=== PATIENT | female | born 1980 | race Caucasian/White ===

== ENCOUNTER 2020-07-27 03:59 | Emergency (ER) | payer BC ==
[~2020-07-27] VITALS: Ht 170.2 cm; Wt 122.5 kg
[~2020-07-27 03:59] MED LIST: CODGUAEL PO; CYCL10 PO; HYDACE5 PO; LEVSOD50 PO; NAPR500 PO; OXYACE5T PO; RXCODGUASY PO; RXCYCL10 PO; RXHYDACE PO
[2020-07-27] MEDS ORDERED: EUTHYROX125 MCG PO (04:45)
[2020-07-27] MEDS ORDERED: SERT50 PO (04:45)
[2020-07-27] MEDS ORDERED: CEPH500 PO (04:46)
[2020-07-27] MEDS ORDERED: CIPRODEX OTIC7.5 M1 RIGHTEAR (05:22)
== END 2020-07-27 05:30 | disposition home or self-care (01) ==
LOC: ER 03:59
DX: H60.91 Unspecified otitis externa, right ear (principal); E03.9 Hypothyroidism, unspecified; Z79.899 Other long term (current) drug therapy
CPT/HCPCS: 99282; A9270

== ENCOUNTER 2021-03-14 19:31 | Emergency (ER) | payer BC ==
[~2021-03-14] VITALS: Ht 170.2 cm; Wt 127.0 kg
[~2021-03-14 19:31] MED LIST changes: +CEPH500 PO; +CIPRODEX OTIC7.5 M1 RIGHTEAR; +EUTHYROX125 MCG PO; +SERT50 PO
[2021-03-14] MEDS ORDERED: DEXA2 PO (20:43)
[2021-03-14] MEDS ORDERED: ONDA4ODT MM (20:43)
== END 2021-03-14 20:51 | disposition home or self-care (01) ==
LOC: ER 19:31
DX: U07.1 COVID-19 (principal); Z79.899 Other long term (current) drug therapy
CPT/HCPCS: 99283

== ENCOUNTER → 2021-03-24 | Outpatient (CLI) | payer BC ==
[~2021-03-24] MED LIST changes: +DEXA2 PO; +ONDA4ODT MM
[2021-03-24 19:50] LABS: BASOPHILS ABSOLUTE AUTO 0.07 K/mm3 (0.00-0.23); BASOPHILS PERCENT AUTO 0 % (0-2); EOSINOPHILS ABSOLUTE AUTO 0.07 K/mm3 (0.00-0.68); EOSINOPHILS PERCENT AUTO 0 % (0-6); Hemoglobin 12.4 g/dL (11.5-16.0); IMMATURE GRAN ABSOLUTE AUTO 0.83 K/mm3 (0.00-0.10); IMMATURE GRAN PERCENT AUTO 4 % (0-1); LYMPHOCYTES ABSOLUTE AUTO 2.13 K/mm3 (0.84-5.20); LYMPHOCYTES PERCENT AUTO 10 % (21-46); MONOCYTES PERCENT AUTO 4 % (4-13); Mean Corpuscular HGB 24.8 pg (26.0-34.0); Mean Corpuscular Volume 80 fL (80-100); Mean Platelet Volume 11.2 fL (9.1-12.4); NEUTROPHILS ABSOLUTE AUTO 17.16 K/mm3 (1.96-9.15); NEUTROPHILS PERCENT AUTO 82 % (41-73); Platelet Count 401 K/mm3 (150-400); RDW Coefficient Variation 16.6 % (11.7-14.2); RDW Standard Deviation 46.5 fL (35.1-46.3); Red Blood Cell Count 4.99 M/mm3 (3.80-5.20); White Blood Cell Count 21.06 K/mm3 (4.00-11.30)
== END | disposition home or self-care (01) ==
LOC: LAB 11:40 → LAB SHORT 11:40
PROVIDERS: Family Medicine
DX: D64.9 Anemia, unspecified (principal)
CPT/HCPCS: 85025

== ENCOUNTER → 2024-01-28 | Outpatient (CLI) | payer BC ==
[~2024-01-28] MED LIST changes: +ACYC800 PO; +ALBU90OI; +ATOR10 PO; +BETA.05TCA; +CEFD300 PO; +ESTRADIOL1 MG PO; +IBUP600 PO; +LEVOTHYROXINE175 MC9 PO; +METF500 PO; +Naproxen375 MG PO; +OMEP20ER; +Roxicodone5 MG PO; +SERT100 PO; +TEMOVATE15 G1 TOP
[2024-01-28 19:16] LABS: Adenovirus F 40/41 Not Detected (NOT DETECT); Astrovirus Not Detected (NOT DETECT); Campylobacter Sp Not Detected (NOT DETECT); Cryptosporidium Not Detected (NOT DETECT); Cyclospora Cayetanensis Not Detected (NOT DETECT); E. Coli O157 Not Detected (NOT DETECT); Entamoeba Histolytica Not Detected (NOT DETECT); Enteroaggregative E. coli-EAEC Not Detected (NOT DETECT); Enteropathogenic E. coli-EPEC Not Detected (NOT DETECT); Enterotoxigenic E. coli-ETEC Not Detected (NOT DETECT); Giardia Lamblia Not Detected (NOT DETECT); Norovirus GI/GII Not Detected (NOT DETECT); Plesiomonas Shigelloides Not Detected (NOT DETECT); Rotavirus A Not Detected (NOT DETECT); Salmonella Sp Not Detected (NOT DETECT); Sapovirus Not Detected (NOT DETECT); Shiga Toxin-prod E. coli-STEC Not Detected (NOT DETECT); Shigella/Enteroin E. coli-EIEC Not Detected (NOT DETECT); Vibrio Cholerae Not Detected (NOT DETECT); Vibrio Sp Not Detected (NOT DETECT); Yersinia Enterocolitica Not Detected (NOT DETECT)
[2024-01-31 03:25] LABS: CALPROTECTIN,FECAL 57 ug/g (<=49)
== END | disposition home or self-care (01) ==
LOC: LAB SHORT 15:20 → LAB 15:20
PROVIDERS: Physician Assistant Medical
DX: R19.7 Diarrhea, unspecified (principal)
CPT/HCPCS: 83993; 87507

== ENCOUNTER 2024-06-18 08:09 | Day surgery (SDC) | payer BC ==
[2024-06-18] VITALS (12 sets, daily range): BP systolic 96–115; BP diastolic 45–73
[~2024-06-18] VITALS: Ht 167.6 cm; Wt 117.9 kg
[~2024-06-18 08:09] MED LIST changes: +OZEMPIC0.25 MG/02 SQ
[2024-06-18] MEDS ORDERED: Lactated Ringer's 1,000 ML IV SCH (10:00)
[2024-06-18] MEDS ORDERED: CeFAZolin Sodium 2,000 MG in NS 100 ML IV SCH (10:00)
[2024-06-18] MEDS ORDERED: FentaNYL Citrate 50 MCG/ML 5 ML Injection ONE (11:31)
[2024-06-18] MEDS ORDERED: propofoL 20 ML IV ONE (11:31)
[2024-06-18] MEDS ORDERED: Ondansetron HCl 2 MG / ML 2ML Vial ONE (11:31)
[2024-06-18] MEDS ORDERED: Rocuronium Bromide 10 MG/ML 5ML Injection IV ONE ×2 (11:31→12:50)
[2024-06-18] MEDS ORDERED: Dexamethasone Sod Phos 10 MG/ML 1ML VIAL ONE (11:31)
[2024-06-18] MEDS ORDERED: Methylene Blue 1% 100 MG/10 ML VIAL ONE (11:31)
[2024-06-18] MEDS ORDERED: Lidocaine HCl 2% 20 ML MDV ONE (11:31)
[2024-06-18] MEDS ORDERED: Bupivacaine 0.5% HCl 5 MG/ML 30MLVIAL ONE (11:32)
[2024-06-18] MEDS ORDERED: HYDROmorphone HCl/Pf 1MG SYR IV PRN (11:40)
[2024-06-18] MEDS ORDERED: FentaNYL Citrate 50 MCG/ML 2 ML Injection IV PRN ×3 (11:40)
[2024-06-18] MEDS ORDERED: Ondansetron HCl 2 MG / ML 2ML Vial IV PRN (11:40)
[2024-06-18] MEDS ORDERED: Labetalol HCL 5 MG/ML 4ML Injection (Single Dose) IV PRN (11:40)
[2024-06-18] MEDS ORDERED: Metoclopramide HCl 5MG / ML 2ML Vial IV PRN (11:40)
[2024-06-18] MEDS ORDERED: Glycopyrrolate 0.2 MG/ML 5ML VIAL ONE (13:17)
[2024-06-18] MEDS ORDERED: Neostigmine Methylsulfate 5MG/5ML SYR ONE (13:17)
[2024-06-18] MEDS ORDERED: FentaNYL Citrate 50 MCG/ML 2 ML Injection ONE (13:54)
[2024-06-18] MEDS ORDERED: Metoclopramide HCl 5MG / ML 2ML Vial ONE (13:56)
[2024-06-18] MEDS ORDERED: Ketorolac Tromethamine 30mg Vial ONE (13:56)
[2024-06-18] MEDS ORDERED: HYDROcodone 5-APAP 325 TAB PO PRN (14:45)
--- NOTE | 2024-06-18 14:54 | NUR ---
Patient up to Ambulate independently. Gait steady. Dressing to procedure site clean, dry, intact with no visible drainage, swelling, erythema or bruising noted. Patient States Post-Procedure ride home has been arranged. Discharged via wheelchair to private car for ride home.
[2024-06-25] MEDS ORDERED: CLOBETASOL EMOL15 G1 TOP (09:42)
== END 2024-06-18 14:59 | disposition home or self-care (01) ==
LOC: ORSCMMR 08:09 → NM 08:09 → ORSCMMR 08:10 → NM 09:30
DX: C50.811 Malignant neoplasm of overlapping sites of right female breast (principal); D36.0 Benign neoplasm of lymph nodes; Z17.0 Estrogen receptor positive status [ER+]; Z17.21 Progesterone receptor positive status; Z17.32 Human epidermal growth factor receptor 2 negative status; G47.33 Obstructive sleep apnea (adult) (pediatric); E11.9 Type 2 diabetes mellitus without complications; E03.9 Hypothyroidism, unspecified; E66.01 Morbid (severe) obesity due to excess calories; Z68.41 Body mass index [BMI] 40.0-44.9, adult; Z79.84 Long term (current) use of oral hypoglycemic drugs; Z79.899 Other long term (current) drug therapy; Z79.85 Long-term (current) use of injectable non-insulin antidiabetic drugs
CPT/HCPCS: 38792; 76098; 82947; 88307; 88342; A9520; J0690; J1100; J1885; J2405; J2704; J2710; J2765; J3010; J7120; Q9968

== ENCOUNTER 2024-07-03 10:01 | Day surgery (SDC) | payer BC ==
[~2024-07-03] VITALS: Ht 167.6 cm; Wt 119.7 kg
[2024-07-03] VITALS (9 sets, daily range): BP systolic 101–120; BP diastolic 64–75
[~2024-07-03 10:01] MED LIST changes: +CLOBETASOL EMOL15 G1 TOP; +Lactated Ringer's 1,000 ML IV SCH
--- NOTE | 2024-07-03 10:51 | NUR ---
Ambulatory in Day Surgery History, Chart, Medications and Allergies reviewed before start of procedure. Pre-Op teaching done. Pt verbalizes understanding. Patient States Post-Procedure ride home has been arranged.
[2024-07-03] MEDS ORDERED: CeFAZolin Sodium 2,000 MG in NS 100 ML IV SCH (11:00)
[2024-07-03] MEDS ORDERED: CeFAZolin Sodium 2,000 MG VIAL ONE (11:10)
[2024-07-03] MEDS ORDERED: Bupivacaine 0.5% HCl 5 MG/ML 30MLVIAL ONE (11:24)
[2024-07-03] MEDS ORDERED: propofoL 20 ML IV ONE ×2 (11:26→11:37)
[2024-07-03] MEDS ORDERED: FentaNYL Citrate 50 MCG/ML 2 ML Injection ONE (11:26)
[2024-07-03] MEDS ORDERED: Dexamethasone Sod Phos 10 MG/ML 1ML VIAL ONE (11:44)
[2024-07-03] MEDS ORDERED: Ondansetron HCl 2 MG / ML 2ML Vial ONE (12:09)
[2024-07-03] MEDS ORDERED: HYDROcodone 5-APAP 325 TAB PO PRN (12:30)
[2024-07-03] MEDS ORDERED: Ketorolac Tromethamine 30mg Vial ONE (12:30)
--- NOTE | 2024-07-03 13:00 | NUR ---
INTO SDS. PT A&OX4-DENIES PAIN, NAUSEA, OR SOB. VS WDL. BREAST BINDER IN PLACE-STERI STRIP TO RIGHT BREAST C/D/I. PT TOLERATING PO WELL.
--- NOTE | 2024-07-03 13:20 | NUR ---
Patient up to Ambulate independently. Gait steady. Dressing to procedure site clean, dry, intact with no visible drainage, swelling, erythema or bruising noted.Breast binder in place. Discharge instructions reviewed with patient. Patient verbalizes understanding. Copy given to patient to take home.Pt discharged to home, out via wheelchair with discharge instructions, rx and belongings on hand.
== END 2024-07-03 23:00 | disposition home or self-care (01) ==
LOC: ORSCMMR 10:01 → ORD 11:45 → ORSCMMR 23:00
PROVIDERS: Surgery
PROC: 0HBT0ZZ Excision of Right Breast, Open Approach (ICD-10-PCS; principal; 2024-07-03 11:45)
DX: C50.411 Malignant neoplasm of upper-outer quadrant of right female breast (principal); G47.33 Obstructive sleep apnea (adult) (pediatric); Z79.899 Other long term (current) drug therapy; Z79.84 Long term (current) use of oral hypoglycemic drugs; Z79.85 Long-term (current) use of injectable non-insulin antidiabetic drugs; E66.01 Morbid (severe) obesity due to excess calories; Z68.41 Body mass index [BMI] 40.0-44.9, adult; E11.9 Type 2 diabetes mellitus without complications; E78.5 Hyperlipidemia, unspecified; E03.9 Hypothyroidism, unspecified; K21.9 Gastro-esophageal reflux disease without esophagitis; E28.2 Polycystic ovarian syndrome
CPT/HCPCS: 76098; 82947; 88307; J0690; J1100; J1885; J2405; J2704; J3010; J7120

== ENCOUNTER 2024-07-07 06:09 | Day surgery (SDC) | payer BC ==
[~2024-07-07] VITALS: Ht 167.6 cm; Wt 119.7 kg
[2024-07-07] VITALS (12 sets, daily range): BP systolic 107–141; BP diastolic 60–89
[~2024-07-07 06:09] MED LIST changes: -Lactated Ringer's 1,000 ML IV SCH
[2024-07-07] MEDS ORDERED: CeFAZolin Sodium 3,000 MG in NS 100 ML IV SCH (06:25)
[2024-07-07] MEDS ORDERED: Phenazopyridine HCl 100 MG Tab PO SCH (06:25)
[2024-07-07] MEDS ORDERED: Lactated Ringer's 1,000 ML IV SCH ×2 (06:25→10:20)
[2024-07-07] MEDS ORDERED: CeFAZolin Sodium 1000 mg Vial ONE (06:47)
--- NOTE | 2024-07-07 07:01 | NUR ---
PINK TOP DRAWN AND SENT TO LAB FOR TYPE AND SCREEN
--- NOTE | 2024-07-07 07:01 | NUR ---
History, Chart, Medications and Allergies reviewed before start of procedure. Pre-Op teaching done. Pt verbalizes understanding. Patient confirms NPO status and agrees with scheduled surgery. PT BELONGINGS BAG PLACED UNDER GURNEY. PT SPOUSE AT BS.
[2024-07-07] MEDS ORDERED: Bupivacaine 0.5% HCl 5 MG/ML 30MLVIAL ONE (07:03)
[2024-07-07] MEDS ORDERED: Midazolam HCl 1MG / ML 2ML Vial IV SCH (07:30)
[2024-07-07] MEDS ORDERED: FentaNYL Citrate 50 MCG/ML 2 ML Injection ONE ×2 (07:32→08:10)
[2024-07-07] MEDS ORDERED: propofoL 20 ML IV ONE (07:32)
[2024-07-07] MEDS ORDERED: Rocuronium Bromide 10 MG/ML 5ML Injection IV ONE (07:48)
[2024-07-07] MEDS ORDERED: Dexamethasone Sod Phos 10 MG/ML 1ML VIAL ONE (07:48)
[2024-07-07] MEDS ORDERED: Ondansetron HCl 2 MG / ML 2ML Vial ONE (07:48)
[2024-07-07] MEDS ORDERED: Ketorolac Tromethamine 30mg Vial ONE (09:38)
[2024-07-07] MEDS ORDERED: Sugammadex Sodium 200 MG/2ML SDV (100 MG/ML) ONE (09:51)
[2024-07-07] MEDS ORDERED: HYDROmorphone HCl/Pf 1MG SYR ONE ×2 (09:55→09:59)
[2024-07-07] MEDS ORDERED: Naloxone HCl 0.4MG / ML 1ML Vial IV PRN (10:20)
[2024-07-07] MEDS ORDERED: Metoclopramide HCl 10 MG Tab PO PRN (10:20)
[2024-07-07] MEDS ORDERED: Ibuprofen 400 MG Tab PO PRN (10:25)
[2024-07-07] MEDS ORDERED: Ondansetron HCl 2 MG / ML 2ML Vial IV PRN (10:25)
[2024-07-07] MEDS ORDERED: FLU VACC TS2024-25(6MOS UP)/PF 45 MCG/0.5 ML SYRINGE IM SCH (10:25)
[2024-07-07] MEDS ORDERED: HYDROmorphone HCl/Pf 1MG SYR IV PRN (10:25)
[2024-07-07] MEDS ORDERED: DiphenhydrAMINE HCL 25 MG Cap PO PRN (10:25)
[2024-07-07] MEDS ORDERED: OxyCODONE HCL 5 MG TAB PO PRN ×2 (10:30)
[2024-07-07] MEDS ORDERED: Cyclobenzaprine HCl 10 MG Tab PO PRN (10:30)
[2024-07-07] MEDS ORDERED: Simethicone 80 MG Chew PO PRN (10:30)
[2024-07-07] MEDS ORDERED: Ketorolac Tromethamine 30mg Vial IV SCH (12:00)
[2024-07-07] MEDS ORDERED: Acetaminophen 500 MG Tab PO SCH (12:00)
[2024-07-07] MEDS ORDERED: IBUP800 PO (14:58)
[2024-07-07] MEDS ORDERED: ACET500 PO (14:59)
[2024-07-07] MEDS ORDERED: ELIQUIS2.5 MG PO (15:01)
[2024-07-07] MEDS ORDERED: OXYC5 PO (15:02)
--- NOTE | 2024-07-07 16:50 | NUR ---
DISCHARGE VOIDING, TOLERATING FLUIDS & SNACKS, PAIN WELL CONTROLLED. NO VAGINAL BLEEDING. FEELS COMFORTABLE w/ DC. ESCORTED OUT VIA WC.
[2024-07-07] MEDS ORDERED: MetFORMIN HCl 500 mg PO SCH (17:00)
[2024-07-08] MEDS ORDERED: Levothyroxine Sodium 0.175 MG TAB PO SCH (06:00)
[2024-07-08] MEDS ORDERED: Enoxaparin 40 MG/0.4 ML SYR SC SCH (09:00)
[2024-07-08] MEDS ORDERED: Atorvastatin 10 MG Tab PO SCH (09:00)
[2024-07-08] MEDS ORDERED: Sertraline HCl 100 MG Tab PO SCH (09:00)
[2024-07-08] MEDS ORDERED: Omeprazole 20 MG CapCR PO SCH (09:00)
== END 2024-07-07 16:35 | disposition home or self-care (01) ==
LOC: ORSCMMR 06:09 → ORD 07:30 → ORSCMMR 07:30 → SURS 10:43 → ORSCMMR 16:35
PROVIDERS: Obstetrics & Gynecology
PROC: 0UT2FZZ Resection of Bilateral Ovaries, Via Natural or Artificial Opening With Percutaneous Endoscopic Assistance (ICD-10-PCS; principal; 2024-07-07 07:30)
PROC: 0UT9FZZ Resection of Uterus, Via Natural or Artificial Opening With Percutaneous Endoscopic Assistance (ICD-10-PCS; principal; 2024-07-07 07:30)
PROC: 0UT7FZZ Resection of Bilateral Fallopian Tubes, Via Natural or Artificial Opening With Percutaneous Endoscopic Assistance (ICD-10-PCS; principal; 2024-07-07 07:30)
DX: N93.9 Abnormal uterine and vaginal bleeding, unspecified (principal); N73.6 Female pelvic peritoneal adhesions (postinfective); N83.8 Other noninflammatory disorders of ovary, fallopian tube and broad ligament; D27.0 Benign neoplasm of right ovary; N83.292 Other ovarian cyst, left side; N94.6 Dysmenorrhea, unspecified; C50.911 Malignant neoplasm of unspecified site of right female breast; Z17.0 Estrogen receptor positive status [ER+]; Z17.21 Progesterone receptor positive status; Z17.32 Human epidermal growth factor receptor 2 negative status; E11.9 Type 2 diabetes mellitus without complications; I10 Essential (primary) hypertension; G47.33 Obstructive sleep apnea (adult) (pediatric); K21.9 Gastro-esophageal reflux disease without esophagitis; E66.01 Morbid (severe) obesity due to excess calories; Z68.41 Body mass index [BMI] 40.0-44.9, adult; Z79.84 Long term (current) use of oral hypoglycemic drugs; Z79.01 Long term (current) use of anticoagulants; E78.5 Hyperlipidemia, unspecified; E03.9 Hypothyroidism, unspecified; F41.8 Other specified anxiety disorders
CPT/HCPCS: 82947; 86850; 86900; 86901; 88307; A9270; J0690; J1100; J1171; J1885; J2250; J2405; J2704; J3010; J7120

== ENCOUNTER → 2024-08-29 | Outpatient (CLI) | payer BC ==
[~2024-08-29] MED LIST changes: +ACET500 PO; +ELIQUIS2.5 MG PO; +IBUP800 PO; +OXYC5 PO
[2024-09-02 14:13] LABS: 3-OH-COTININE, URN, QUANT <50 ng/mL; ANABASINE, URN, QUANT <5 ng/mL; COTININE, URN, QUANT <15 ng/mL; NICOTINE, URN, QUANT <15 ng/mL
== END ==
LOC: LAB 09:46 → LAB SHORT 09:46 → LAB FUT 08-28 10:05 → EDSTATUS 08-28 10:05
PROVIDERS: Student in an Organized Health Care Education/Training Program
DX: M15.9 Polyosteoarthritis, unspecified (principal); E66.813 Obesity, class 3; E66.01 Morbid (severe) obesity due to excess calories; Z68.41 Body mass index [BMI] 40.0-44.9, adult
CPT/HCPCS: G0480